=== PATIENT | male | born 1990 | race Caucasian/White ===

== ENCOUNTER 2021-06-19 01:50 | Inpatient (IN) ==
[2021-06-19] MEDS ORDERED: Al Hydrox/Mg Hydrox/Simet LIQ 30 ML UDC PO PRN (06:38)
[2021-06-19] MEDS: Vitamin THERAPEUTIC TAB PO SCH (09:06)
[2021-06-19] MEDS ORDERED: Nicotine GUM 4MG FRUIT FLAVOR PO PRN (14:05)
[2021-06-19] MEDS: Nicotine PATCH 21 MG/24 HR PATCH TRANSDERM SCH (14:26)
[2021-06-19 17:32] LABS: ABS Basophils 0.1 10^3/ul (0-0.2); ABS Eosinophils 0.4 10^3/ul (0-0.6); ABS Lymphocytes 4.3 10^3/ul (1.0-4.8); ABS Monocytes 0.7 10^3/ul (0-0.8); ABS Neutrophils 3.1 10^3/ul (1.5-7.7); Eosinophil % 4.2 %; Hematocrit 48 % (42-52); Hemoglobin 16.2 g/dL (14.0-18.0); Lymphocyte % 50.1 %; Mean Corpuscular HGB Conc 34 g/dL (31-36); Mean Corpuscular Hemoglobin 32 pg (27-31); Mean Corpuscular Volume 93 fL (80-94); Mean Platelet Volume 8.1 fL (7.4-10.4); Platelet Count 207 10^3/uL (150-450); Red Blood Count 5.11 10^6 /uL (4.18-5.48); Red Cell Distribution Width 13 % (10-15); White Blood Count 8.5 10^3/uL (3.5-10.8)
[2021-06-20] MEDS: Nicotine PATCH 21 MG/24 HR PATCH TRANSDERM SCH (08:13)
[2021-06-20] MEDS: Vitamin THERAPEUTIC TAB PO SCH (08:57)
[2021-06-21] MEDS: Nicotine PATCH 21 MG/24 HR PATCH TRANSDERM SCH (08:53)
[2021-06-21] MEDS: Vitamin THERAPEUTIC TAB PO SCH (08:55)
== END 2021-06-21 14:27 | disposition home or self-care (01) | DRG 897 ==
LOC: ED 01:50 → BSU 05:30 → ED 06:38
PROVIDERS: ADMIT Psychiatry & Neurology Addiction Psychiatry; ATTEND Psychiatry & Neurology Psychiatry